=== PATIENT | male | born 1945 | race Caucasian/White ===

== ENCOUNTER 2018-05-10 09:29 | Observation (INO) | payer OTHER ==
[~2018-05-10] VITALS: Ht 180.3 cm; Wt 84.4 kg
[2018-05-10] VITALS (10 sets, daily range): BP systolic 102–120; BP diastolic 58–69
--- NOTE | ~2018-05-10 | D ---
[facility] [place] [address] [place] [address] DISCHARGE SUMMARY Name: DEANGELO LIND Room #: 210-P [facility] Lolis Lopez#: [id number] Admission: 05/10/18 ������������������ Attend Phys: Oleg Velasquez Discharge: ������������������ Date of : [birth year] Report #: [id number] THIS REPORT FOR: //name// CC: FAM unknown Oleg Velasquez TJ OLMEDO DATE OF SERVICE: 05/11/2018 FINAL DIAGNOSES: 1. Unstable angina. 2. History of coronary artery bypass grafting. 3. Hypertension. 4. Hypercholesterolemia. HOSPITAL COURSE: Please see the original H and P for full details. The patient has a prior history of CABG, presenting with dyspnea and chest fullness with exertion. He had an abnormal nuclear stress test in 2018. Please see the cardiac catheterization report. He was found to have a severe occlusion involving the distal left main extending into the proximal left circumflex artery. He had prior stent placement in this area and underwent balloon angioplasty. He remained stable overnight with no episodes of chest pain or shortness of breath. He was given instructions to follow up in the office in a few weeks. FINAL DISPOSITION: Plavix 75 mg daily, Toprol-XL 25 mg daily, losartan 25 mg daily, Imdur 30 mg daily, amlodipine 5 mg daily, Crestor 20 mg daily and aspirin 81 mg and tamsulosin daily. ��������������������������������������������� ���������������������������������������� By: ��������������������������������������������� 1023 1042 /nt
[2018-05-10 10:06] LABS: HEMATOCRIT 43.1 % (42.0-52.0); HEMOGLOBIN 14.6 gm/dL (14.0-18.0); MCH 31.3 pg (26.0-34.0); MCHC 33.8 g/dL (28.0-37.0); MCV 92.8 fL (80.0-100.0); RBC 4.65 mil/uL (4.50-6.00); RDW 14.2 % (10.5-14.5); WBC 5.1 thou/uL (4.0-11.0)
[2018-05-10 10:15] LABS: CALCIUM 9.1 mg/dL (8.5-10.1); CREATININE 0.8 mg/dL (0.7-1.3)
[2018-05-10] MEDS ORDERED: PLAVIX 75 MG TA75 M1 PO (10:23)
[2018-05-10] MEDS ORDERED: TOPROL XL25 MG PO (10:23)
[2018-05-10] MEDS ORDERED: IMDUR 30 MG TAB30 M1 PO (10:24)
[2018-05-10] MEDS ORDERED: NORVASC5 MG PO (10:24)
[2018-05-10] MEDS ORDERED: COZAAR 25 MG TA25 M1 PO (10:24)
[2018-05-10] MEDS ORDERED: FLOMAX0.4 MG PO (10:25)
[2018-05-10] MEDS ORDERED: CRESTOR20 MG PO (10:25)
[2018-05-10] MEDS ORDERED: ASPIR 8181 MG PO (10:25)
--- NOTE | 2018-05-10 12:43 | EKG ---
[address] [address] ELECTROCARDIOGRAM REPORT Name: LINDDEANGELO JR [facility] [id number] ������������������ Admission: 05/10/18 ������������������ Attend Phys: Oleg Velasquez Discharge: ������������������ Date of : 49 Report #: [id number] ����������������������������������������������������������������� [id number] THIS REPORT FOR: //name// [facility] Test Date: 2018-05-10 Test Time: 09:49:31 Pat Name: DEANGELO LIND Department: Room: Gender: M Medical Accounts Receivable Specialist: [facility] : 1945 Requested By: Oleg Velasquez Order Number: [id number] MD: Noam Lucas Measurements Intervals [place] Rate: 56 P: -14 UT: 143 QRS: 10 QRSD: 92 T: 17 QT: 445 QTc: 430 Interpretive Statements Sinus rhythm Right ventricular conduction delay No previous ECG available for comparison Electronically Signed On 05-10-2018 12:43:41 CDT by Noam Lucas [email or web address] ��������������������������������������������� <ELECTRONICALLY SIGNED> ���������������������������������������� By: Noam Lucas MD ��������������������������������������������� 05/10/18 1243 0949 0949 Noam Lucas MD /EPI
--- NOTE | 2018-05-10 18:21 | NUR ---
ASSESSMENT DOCUMENTED. VSS. NSR ON THE MONITOR. NO PAIN/CHEST PAIN REPORTED. PT OFF BEDREST. R GROIN WITH MYNX CLOSURE C/D/I WITH NO S/SX OF HEMATOMA. PT RESTING IN BED WITH CALL LIGHT IN REACH. WILL CONTINUE TO MONITOR.
[2018-05-11 01:12] VITALS: BP 112/63
--- NOTE | 2018-05-11 03:36 | NUR ---
ASSESSMENT CHARTED. RIGHT GROIN ACCESS SITE IS CLEAN, DRY INTACT, AND SOFT. MINXX CLOSURE. UP AT [facility]. PATIENT NORMALLY USES CPAP AT HOME, USED 2 LITERS O2 WHILE ASLEEP WHILE HERE. PLAN IS TO GO HOME TODAY.
[2018-05-11 04:04] VITALS: BP 119/54
[2018-05-11 04:58] LABS: CALCIUM 8.8 mg/dL (8.5-10.1); CREATININE 0.9 mg/dL (0.7-1.3); POTASSIUM 4.7 mmol/L (3.5-5.1)
[2018-05-11 08:39] VITALS: BP 129/61
[2018-05-11 11:25] VITALS: BP 129/61
[2018-05-11 12:00] VITALS: BP 131/62
--- NOTE | 2018-05-11 14:22 | NUR ---
ASSUMED CARE OF PATIENT AT 0700. PATIENT IS A&O X 4. PATIENT RIGHT GROIN SITE CHECKED AT AM SHIFT CHANGE. DIME SIZE AMOUNT OF DRIED BLOOD ON GAUZE WITH MINIMAL TENDERNESS TO PALPATION. NO SWELLING AND HEMATOMA. ASSESSMENT CHARTED. PATIENT RESTING COMFORTABLY WITH CALL LIGHT WITHIN REACH. DR. MURGUIA ORDERED PATIENT'S DISCHARGE. I REVIEWED THE PATIENT'S D/C PAPERWORK WITH HIM. PAPERWORK SIGNED. IV AND TELE REMOVED. PATIENT WHEELED OUT TO [facility] EN[facility] VIA WHEELCHAIR. PATIENT STATES THAT HE FEELS BETTER THAN HE DID WHEN HE ARRIVED.
--- NOTE | 2018-05-15 10:33 | CATHLAB ---
[facility] [address] [place] [address] INVASIVE PROCEDURE REPORT Name: LINDDEANGELO JR Room #: 210-P [facility]#: [id number] ������������� Admission: 05/10/18 ������������� Attend Phys: Oleg Carrasco Discharge: ��� 05/11/18 ������������� ��� Date of : 49 Date of Service: 05/15/18 1033 �� Report #: [id number] �������� ��������������������������������������������[id number] THIS REPORT FOR: //name// APPROVED REPORT Study performed: 05/10/2018 11:41:18 Patient Details Patient Status: Out-Patient Room #: The patient is a 73 year-old male Event Personnel Oleg Velasquez Nurse Specialist, Napoleon Lambert RN, Alina Bearden Kline, Tiffany RN Monitor, Amanda Saldaña RTR, CHIEF OF PEDIATRIC UROLOGY Monitor Procedures Performed Art Access - R femoral artery* Left Heart Cath Coronaries, Bypass Grafts 2201311 LHCCORCABG PTCA Single Vessel CIRC [id number] PCISINGLE 75396 Initial Mod Sed Same Phys/QHP Gr5y 296554 18715 Mod Sed Same Phys/QHP Ea 159126 Hemostasis w/ Mynx, supervision of conscious sedation Indication Chest pain Procedure Narrative The Right Groin^ was infiltrated with 1% Lidocaine subcutaneous anesthesia. A PINNACLE 4FR Sheath #[id number] sheath was inserted into the RFA^. Coronary angiography was performed using coronary diagnostic catheters. The right coronary system was accessed and visualized with a JR4 catheter. The left coronary system was accessed and visualized with a JL4 catheter. Left ventricular/Aortic Valve gradient assessed via catheter pullback. Closure device was deployed with a 6 Fr MYNXGRIP 6/7F #[id number]. The patient tolerated the procedure well and there were no complications associated with the procedure. There was no hematoma. Intraoperative Conscious Sedation Sedation start time: 11:56 Case end Time: 12:59 Versed 2 mg Fluoro Time: 13.36 minutes Dose: DAP 43100.50 cGycm2 1602 mGy [facility] [place] [address] INVASIVE PROCEDURE REPORT Name: LINDDEANGELO Room #: 210-P [facility]#: [id number] ������������� Admission: 05/10/18 ������������� Attend Phys: Oleg Carrasco Discharge: ��� 05/11/18 ������������� ��� Date of : 49 Date of Service: 05/15/18 1033 �� Report #: [id number] �������� ��������������������������������������������[id number] Contrast Type and Amount: Omnipaque 120 ml Coronary Angiography The patient's coronary anatomy is right dominant. [place] Artery Percent Stenosis Grafts (Complete if Previous CABG=Yes: Percent Stenosis) Left Main: % Prox LAD: % Mid/Distal LAD: 0 % Circumflex: 100 % RCA: 0 % Ramus: % Diagnostic Cath Left Main Normal origin and caliber bifurcates left anterior descending left circumflex. There is a distal tapering which is moderate. It is heavily calcified. LAD Small-caliber vessel which has a high-grade proximal lesion of greater than 85% and is totally occluded. Mid and distal portion fills via a widely patent left internal mammary artery. It is a moderate caliber type II vessel which has a proximal 30% right after the anastomosis of the L ARCELIA which is not flow-limiting. Then continues on with luminal irregularities terminating as a bifurcating small vessel at the apex Diagonal 1 Small-caliber vessel which arises before the internal mammary graft and is fed by the high-grade LAD lesion but is small in caliber with only luminal irregularities Circumflex Moderate caliber vessel which is stented from its origin to its distal portion. The stent comprises of at least 4/5 of the vessel itself. There is a proximal eccentric lesion which is within the stent and a distal lesion in the stent. There is a band prior to the termination of this stent which has a 75% blockage. OM1 Small-caliber vessel with luminal irregularities noted OM2 Essentially the anatomy described above and the majority of the circumflex circulation and flow is through this branch Right Coronary Moderate caliber vessel which has a 60% proximal lesions. In courses posteriorly with luminal irregularities where the PDA arises completely occluded origin. The RCA continues with moderate luminal irregularities giving rise to posterior lateral branch which has a proximal 60-70% lesion. R PDA Small-caliber vessel fed by a patent saphenous vein graft and has luminal irregularities but no high-grade lesions RPLV Small-caliber vessel with luminal irregularities proximal lesion that has a patent SVG skip graft in its midportion supplying [address] [address] INVASIVE PROCEDURE REPORT Name: DEANGELO LIND JR Room #: 210-P [facility].#: [id number] ������������� Admission: 05/10/18 ������������� Attend Phys: Olge Carrasco Discharge: ��� 05/11/18 ������������� ��� Date of : 49 Date of Service: 05/15/18 1033 �� Report #: [id number] �������� ��������������������������������������������[id number] Left Ventriculography Left Ventriculography was not performed. Hemodynamics The aortic pressure is 95/62 mmHg with a mean of 79 mmHg. The left ventricular pressure is 121/8 mmHg with a mean of mmHg. The left ventricular end diastolic pressure is 19 mmHg. PCI Technique With the evidence of significant in-stent restenosis cutting balloon was attempted to be advanced. The angulation and the severity of the lesion prevented the cutting balloon and sculpting balloon to be positioned within the lesion itself. Subsequent to this a standard PTCA balloon was then positioned across the proximal lesion. This was dilated snoring numerous times to provide adequate lumen for the cutting balloon. It was not fully expanded to provide benefit of sculpting but attempted the advancement of the sculpting balloon failed to permit proper positioning. In view of this it was felt that percutaneous transluminal coronary angioplasty for the moment would be appropriate and if recurs then utilization of the laser technology for in-stent restenosis. The proximal stent was then markedly reexpanded with minimal residual. During balloon was advanced distally and within the distal 75% lesion was attempted to be dilated. Initial water melon seed effect was controlled and positioning of the balloon across the lesion was achieved. Inflation at high pressures failed to provide adequate minimization of the stent and in view of this it was felt no further need for dilatation was present since the antegrade flow was markedly improved from the proximal stenosis. The wire the balloons were then removed. Patient tolerated procedure well there was no loss of side branches embolization intraluminal disruption with improved flow noted. PCI Technique Lesion Percutaneous coronary intervention was performed on the proximal circumflex artery segment. A LAUNCHER 6FR JL4 #[id number] Guide Catheter was used to engage the ostium. A Luge Wire (J) .014 X 182CM #[id number] Interventional Guidewire was used to cross the lesion. BALLOON DILATION A Balloon catheter Sprinter OTW 3.0 x 15 #[id number] was inserted and inflated up to 8.00atm for 39seconds. Additional Inflation: 14.00atm for 83seconds. Additional Inflation: 16.00atm for 92seconds. Additional Inflation: 16.00 filippo for 98 seconds PCI Technique Lesion 2 Percutaneous Coronary Intervention was performed on the [facility] [address] [place] [address] INVASIVE PROCEDURE REPORT Name: DEANGELO LIND Room #: 210-P [facility].#: [id number] ������������� Admission: 05/10/18 ������������� Attend Phys: Oleg Carrasco Discharge: ��� 05/11/18 ������������� ��� Date of : 49 Date of Service: 05/15/18 1033 �� Report #: [id number] �������� ��������������������������������������������[id number] marginal branch segment. A LAUNCHER 6FR JL4 #[id number] Guide Catheter was used to engage the ostium. A Luge Wire (J) .014 X 182CM #[id number] Interventional Guidewire was used to cross the lesion. Balloon Dilation A Balloon catheter Sprinter OTW 3.0 x 15 #[id number] was inserted and inflated up to 16.00atm for 92seconds. Additional Inflation: 16.00atm for 92seconds. Additional Inflation: 6.00atm for 18seconds. Additional Inflation: 5 filippo for 20 seconds Conclusion 1. Coronary artery disease status post aortocoronary bypass grafting with SVG to the circumflex posterior left ventricular branch and posterior descending artery, and [place] graft to the LAD. 2.. Significant in-stent restenosis of left circumflex stenting 3. Successful PCI of the proximal and mid left circumflex stent restenosis with minimal improvement in the distal lesion Recommendations Cardiac Risk Reduction Program Medical Therapy Medications Administered Clopidogrel ��������������������������������������������� <ELECTRONICALLY SIGNED> ���������������������������������������� By: Oleg Velasquez MD ��������������������������������������������� 05/15/18 1033 1033 1033 Oleg Velasquez MD /INF
== END 2018-05-11 13:15 | disposition home or self-care (01) ==
LOC: CATH 09:29 → 2N 13:32 → CATH 14:01 → 2N 05-11 13:15
PROVIDERS: ADMIT Internal Medicine
DX: I20.0 Unstable angina (principal); I10 Essential (primary) hypertension; E78.00 Pure hypercholesterolemia, unspecified; Z95.1 Presence of aortocoronary bypass graft

== ENCOUNTER → 2019-04-29 | Outpatient (CLI) | payer OTHER ==
[~2019-04-29] MED LIST: ASPIR 8181 MG PO; COZAAR 25 MG TA25 M1 PO; CRESTOR20 MG PO; FLOMAX0.4 MG PO; IMDUR 30 MG TAB30 M1 PO; NORVASC5 MG PO; PLAVIX 75 MG TA75 M1 PO; TOPROL XL25 MG PO
== END ==
LOC: SJCVCIMAG 11:22 → SJCVC 11:22
DX: Z01.810 Encounter for preprocedural cardiovascular examination (principal); I34.0 Nonrheumatic mitral (valve) insufficiency; I10 Essential (primary) hypertension; E78.00 Pure hypercholesterolemia, unspecified; I25.810 Atherosclerosis of coronary artery bypass graft(s) without angina pectoris; E78.5 Hyperlipidemia, unspecified; Z79.82 Long term (current) use of aspirin; Z79.899 Other long term (current) drug therapy; Z95.1 Presence of aortocoronary bypass graft